=== PATIENT | male | born 1960 | race Caucasian/White ===

== ENCOUNTER 2018-07-28 05:48 | Day surgery (SDC) | payer OTHER ==
[2018-07-28] MEDS ORDERED: MIDAZOLAM 1 MG/ML 2 ML INJ ×2 (08:43)
[2018-07-28] MEDS ORDERED: FENTAnyl 50 MCG/ML VIAL (08:43)
== END 2018-07-28 10:18 | disposition home or self-care (01) ==
LOC: GIL 05:48
DX: Z12.11 Encounter for screening for malignant neoplasm of colon (principal); D12.0 Benign neoplasm of cecum; K64.8 Other hemorrhoids
CPT/HCPCS: 45380; 88305